=== PATIENT | female | born 2000 | race American Indian/Alaskan Native ===

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

== ENCOUNTER 2019-01-19 11:28 | Emergency (ER) | payer MEDICAID ==
[2019-01-19 11:36] VITALS: BP 145/92
[2019-01-19 12:38] LABS: Bacteria,Urine 1+ /HPF (Negative); Bilirubin,Urine NEG (Negative); Blood,Urine SM (Negative); Color,Urine Yellow (Yellow); Mucus,Urine FEW /HPF; Urobilinogen,Urine < 2.0 mg/dL (<2.0)
[2019-01-19 12:39] LABS: HCG Qualitative,Urine Negative (Negative)
--- NOTE | 2019-01-19 15:31 | Emergency Department Report ---
ED Female HPI - General Chief complaint: Urogenital-Female Stated complaint: SWOLLEN VAGINAL BURNING/ITCHING Time Seen by Provider: 01/19/19 15:07 Source: patient Mode of arrival: Ambulatory Limitations: No Limitations - History of Present Illness Initial comments: Patient is a 18-year-old [place] female who is here stating she has vaginal itching and burning with dysuria for the last 2 days. Patient also states she feels as though her vulva is swollen. She denies any vaginal discharge at this time. Patient denies abdominal pain nausea vomiting fevers or chills. - Related Data Home Medications Medication Instructions Recorded Confirmed Last Taken Citalopram Hydrobromide [celeXA] 40 mg PO QDAY 12/06/16 12/06/16 Unknown Lisinopril [Zestril TAB] 20 mg PO QDAY 12/06/16 12/06/16 12/05/16 20 mg OXcarbazepine [Trileptal] 300 mg PO QHS 12/06/16 12/06/16 Unknown hydrOXYzine HCl [Hydroxyzine HCl] 25 mg PO TID 12/06/16 12/06/16 Unknown Previous Rx's Medication Instructions Recorded Last Taken Type Nitrofurantoin Butler/M-Cryst 100 mg PO Q12HR #14 capsule 01/19/19 Unknown Rx [Macrobid CAP] Allergies Allergy/AdvReac Type Severity Reaction Status Date / Time cinnamon Allergy Itching Verified 01/19/19 11:33 iodine Allergy Rash Verified 01/19/19 11:33 morphine Allergy Rash Verified 01/19/19 11:33 sulfamethoxazole Allergy Rash Verified 01/19/19 11:33 [From Bactrim] trimethoprim [From Bactrim] Allergy Rash Verified 01/19/19 11:33 ED Review of Systems ROS: Stated complaint: SWOLLEN VAGINAL BURNING/ITCHING Other details as noted in HPI Comment: All other systems reviewed and negative ED Past Medical Hx - Past Medical History Previous Medical History?: Yes Hx Hypertension: Yes (takes meds) Hx Asthma: Yes Additional medical history: Polycystic Kidney Disesse - Surgical History Past Surgical History?: No - Social History Smoking Status: Never Smoker - Medications Home Medications: Home Medications Medication Instructions Recorded Confirmed Last Taken Type Citalopram Hydrobromide [celeXA] 40 mg PO QDAY 12/06/16 12/06/16 Unknown History Lisinopril [Zestril TAB] 20 mg PO QDAY 12/06/16 12/06/16 12/05/16 History 20 mg OXcarbazepine [Trileptal] 300 mg PO QHS 12/06/16 12/06/16 Unknown History hydrOXYzine HCl [Hydroxyzine HCl] 25 mg PO TID 12/06/16 12/06/16 Unknown History Nitrofurantoin Butler/M-Cryst 100 mg PO Q12HR #14 capsule 01/19/19 Unknown Rx [Macrobid CAP] ED Physical Exam - General Limitations: No Limitations General appearance: alert, in no apparent distress - Head Head exam: Present: atraumatic, normocephalic - Eye Eye exam: Present: normal appearance - ENT ENT exam: Present: mucous membranes moist - Neck Neck exam: Present: normal inspection - Respiratory Respiratory exam: Present: normal lung sounds bilaterally. Absent: respiratory distress, wheezes, rales, rhonchi - Cardiovascular Cardiovascular Exam: Present: regular rate, normal rhythm. Absent: systolic murmur, diastolic murmur, rubs, gallop - GI/Abdominal GI/Abdominal exam: Present: soft, normal bowel sounds. Absent: distended, tenderness, guarding, rebound - Speculum exam: Present: vaginal discharge (during the external exam a thick mucoid vaginal discharge is appreciated. There are no Bartholin's cyst or abscesses present. No open sore like lesions present.). Absent: vaginal bleeding - Extremities Exam Extremities exam: Present: normal inspection - Back Exam Back exam: Present: normal inspection - Neurological Exam Neurological exam: Present: alert, oriented X3 - Psychiatric Psychiatric exam: Present: normal affect, normal mood - Skin Skin exam: Present: warm, dry, intact, normal color. Absent: rash ED Course Vital Signs 01/19/19 11:35 Temperature 98.2 F Pulse Rate 83 Respiratory 20 Rate Blood Pressure 145/92 O2 Sat by Pulse 99 Oximetry ED Medical Decision Making - Lab Data Lab Results 01/19/19 Range/Units 12:02 Urine Color Yellow (Yellow) Urine Turbidity Cloudy (Clear) Urine pH 6.0 (5.0-7.0) Ur Specific [place] 1.011 (1.003-1.030) Urine Protein 30 mg/dl (Negative) mg/dL Urine Glucose (UA) Neg (Negative) mg/dL Urine Ketones Neg (Negative) mg/dL Urine Blood Sm (Negative) Urine Nitrite Neg (Negative) Urine Bilirubin Neg (Negative) Urine Urobilinogen < 2.0 (<2.0) mg/dL Ur Leukocyte Esterase Lg (Negative) Urine WBC (Auto) 19.0 H (0.0-6.0) /HPF Urine RBC (Auto) 6.0 (0.0-6.0) /HPF U Epithel Cells (Auto) 13.0 (0-13.0) /HPF Urine Bacteria (Auto) 1+ (Negative) /HPF Urine Mucus Few /HPF Urine HCG, Qual Negative (Negative) - Medical Decision Making Patient to be started on antibiotics for UTI however because of the copious amounts of vaginal discharge that the patient denied on the history patient will be given Rocephin azithromycin Flagyl and Diflucan. Critical care attestation.: If time is entered above; I have spent that time in minutes in the direct care of this critically ill patient, excluding procedure time. ED Disposition Clinical Impression: UTI (urinary tract infection) Qualifiers: Urinary tract infection type: acute cystitis Hematuria presence: without hematuria Qualified Code(s): N30.00 - Acute cystitis without hematuria Vaginitis Qualifiers: Chronicity: acute Qualified Code(s): N76.0 - Acute vaginitis Disposition: TO HOME OR SELFCARE Is pt being admited?: Yes Does the pt Need Aspirin: No Condition: Stable Instructions: Urinary Tract Infection in Women (ED), Vaginitis (ED) Referrals: ADRIAN MELVIN MD [Staff Physician] - 3-5 Days Time of Disposition: 15:32
[2019-01-19] MEDS ORDERED: ROCEPHIN IM ONE (15:34)
[2019-01-19] MEDS ORDERED: XYLOCAINE 1% MPF 5 mL INFILTRATI ONE (15:34)
[2019-01-19] MEDS ORDERED: ZITHROMAX PO ONE (15:34)
[2019-01-19] MEDS ORDERED: FLAGYL PO ONE (15:34)
[2019-01-19] MEDS ORDERED: DIFLUCAN PO ONE (15:34)
== END 2019-01-19 16:21 | disposition home or self-care (01) ==
LOC: ED 11:28
DX: N76.0 Acute vaginitis (principal); N39.0 Urinary tract infection, site not specified; I10 Essential (primary) hypertension; J45.909 Unspecified asthma, uncomplicated; Z79.899 Other long term (current) drug therapy; Z91.018 Allergy to other foods; Z88.6 Allergy status to analgesic agent; Z88.2 Allergy status to sulfonamides
CPT/HCPCS: 81001; 81025; 87086; 96372; 99283; J0696; 90471

== ENCOUNTER 2019-06-06 08:24 | Emergency (ER) | payer SELFPAY ==
--- NOTE | 2019-06-06 09:05 | Emergency Department Report ---
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 Patient states that she has not been when she urinates and this morning. Patient's last urinated yesterday morning she had a lot of pain and discomfort has not been able to urinate since then. Patient states that she does have the urge to urinate but only a drop or 2 comes out followed by pain. Patient also complains of slight flank pain bilaterally. She denies fevers/chills/nausea or vomiting, diarrhea or constipation. Patient is also complaining of a yellowish vaginal discharge and vaginal irritation with itching MD Complaint: vaginal discharge, dysuria -: days(s) (1) Radiation: L flank, R flank Severity: mild Severity scale (0 -10): 4 Are you Now?: No (unsure) Last Menstrual Period: 05/25/19 EDC: 02/29/20 - Related Data Home Medications Medication Instructions Recorded Confirmed Last Taken Citalopram Hydrobromide [celeXA] 40 mg PO QDAY 12/06/16 12/06/16 Unknown Lisinopril [Zestril TAB] 20 mg PO QDAY 12/06/16 12/06/16 12/05/16 20 mg OXcarbazepine [Trileptal] 300 mg PO QHS 12/06/16 12/06/16 Unknown hydrOXYzine HCl [Hydroxyzine HCl] 25 mg PO TID 12/06/16 12/06/16 Unknown Previous Rx's Medication Instructions Recorded Last Taken Type Nitrofurantoin [place]/M-Cryst 100 mg PO Q12HR #14 capsule 06/06/19 Unknown Rx [Macrobid CAP] Phenazopyridine [Pyridium] 100 mg PO TID #20 tab 06/06/19 Unknown Rx Allergies Allergy/AdvReac Type Severity Reaction Status Date / Time cinnamon Allergy Itching Verified 01/19/19 11:33 iodine Allergy Rash Verified 01/19/19 11:33 morphine Allergy Rash Verified 01/19/19 11:33 sulfamethoxazole Allergy Rash Verified 01/19/19 11:33 [From Bactrim] trimethoprim [From Bactrim] Allergy Rash Verified 01/19/19 11:33 ED Review of Systems ROS: Stated complaint: DIFFICULTY URINATING/ABD PAIN Other details as noted in HPI Comment: All other systems reviewed and negative ED Past Medical Hx - Past Medical History Previous Medical History?: Yes Hx Hypertension: Yes (takes meds) Hx Asthma: Yes Additional medical history: Polycystic Kidney Disesse - Surgical History Past Surgical History?: No - Social History Smoking Status: Never Smoker Substance Use Type: Prescribed - Medications Home Medications: Home Medications Medication Instructions Recorded Confirmed Last Taken Type Citalopram Hydrobromide [celeXA] 40 mg PO QDAY 12/06/16 12/06/16 Unknown History Lisinopril [Zestril TAB] 20 mg PO QDAY 12/06/16 12/06/16 12/05/16 History 20 mg OXcarbazepine [Trileptal] 300 mg PO QHS 12/06/16 12/06/16 Unknown History hydrOXYzine HCl [Hydroxyzine HCl] 25 mg PO TID 12/06/16 12/06/16 Unknown History Nitrofurantoin [place]/M-Cryst 100 mg PO Q12HR #14 capsule 06/06/19 Unknown Rx [Macrobid CAP] Phenazopyridine [Pyridium] 100 mg PO TID #20 tab 06/06/19 Unknown Rx ED Physical Exam - General Limitations: No Limitations General appearance: alert, in no apparent distress - Head Head exam: Present: atraumatic, normocephalic - Eye Eye exam: Present: normal appearance - ENT ENT exam: Present: mucous membranes moist - Neck Neck exam: Present: normal inspection - Respiratory Respiratory exam: Present: normal lung sounds bilaterally. Absent: respiratory distress - Cardiovascular Cardiovascular Exam: Present: regular rate, normal rhythm. Absent: systolic murmur, diastolic murmur, rubs, gallop - GI/Abdominal GI/Abdominal exam: Present: soft, normal bowel sounds - External exam: Present: normal external exam Speculum exam: Present: cervical discharge, vaginal bleeding Bi-manual exam: Present: normal bi-manual exam - Extremities Exam Extremities exam: Present: normal inspection - Back Exam Back exam: Present: normal inspection - Neurological Exam Neurological exam: Present: alert, oriented X3 - Psychiatric Psychiatric exam: Present: normal affect, normal mood - Skin Skin exam: Present: warm, dry, intact, normal color. Absent: rash ED Course Vital Signs 06/06/19 06/06/19 08:27 09:57 Temperature 97.7 F Pulse Rate 54 L Respiratory 14 12 Rate Blood Pressure 160/81 Blood Pressure 125/70 [Right] O2 Sat by Pulse 100 Oximetry ED Medical Decision Making - Lab Data Result diagrams: 06/06/19 09:04 06/06/19 09:04 Laboratory Last Values WBC 7.3 K/mm3 (4.5-11.0) 06/06/19 09:04 RBC 4.63 M/mm3 (3.65-5.03) 06/06/19 09:04 Hgb 11.6 gm/dl (10.1-14.3) 06/06/19 09:04 Hct 35.9 % (30.3-42.9) 06/06/19 09:04 MCV 77 fl (79-97) L 06/06/19 09:04 MCH 25 pg (28-32) L 06/06/19 09:04 MCHC 32 % (30-34) 06/06/19 09:04 RDW 14.0 % (13.2-15.2) 06/06/19 09:04 Plt Count 275 K/mm3 (140-440) 06/06/19 09:04 Lymph % (Auto) 26.2 % (13.4-35.0) 06/06/19 09:04 Giles % (Auto) 6.8 % (0.0-7.3) 06/06/19 09:04 Eos % (Auto) 9.7 % (0.0-4.3) H 06/06/19 09:04 Baso % (Auto) 0.6 % (0.0-1.8) 06/06/19 09:04 Lymph # 1.9 K/mm3 (1.2-5.4) 06/06/19 09:04 Giles # 0.5 K/mm3 (0.0-0.8) 06/06/19 09:04 Eos # 0.7 K/mm3 (0.0-0.4) H 06/06/19 09:04 Baso # 0.0 K/mm3 (0.0-0.1) 06/06/19 09:04 Seg Neutrophils % 56.7 % (40.0-70.0) 06/06/19 09:04 Seg Neutrophils # 4.2 K/mm3 (1.8-7.7) 06/06/19 09:04 Sodium 141 mmol/L (137-145) 06/06/19 09:04 Potassium 3.8 mmol/L (3.6-5.0) 06/06/19 09:04 Chloride 103.5 mmol/L (98-107) 06/06/19 09:04 Carbon Dioxide 26 mmol/L (22-30) 06/06/19 09:04 Anion Gap 15 mmol/L 06/06/19 09:04 BUN 8 mg/dL (7-17) 06/06/19 09:04 Creatinine 0.6 mg/dL (0.7-1.2) L 06/06/19 09:04 Estimated GFR > 60 ml/min 06/06/19 09:04 BUN/Creatinine Ratio 13 % 06/06/19 09:04 Glucose 95 mg/dL (65-100) 06/06/19 09:04 Calcium 9.0 mg/dL (8.4-10.2) 06/06/19 09:04 Total Bilirubin 0.50 mg/dL (0.1-1.2) 06/06/19 09:04 AST 16 units/L (5-40) 06/06/19 09:04 ALT 12 units/L (7-56) 06/06/19 09:04 Alkaline Phosphatase 76 units/L (35-129) 06/06/19 09:04 Total Protein 8.2 g/dL (6.3-8.2) 06/06/19 09:04 Albumin 4.4 g/dL (3.9-5) 06/06/19 09:04 Albumin/Globulin Ratio 1.2 % 06/06/19 09:04 HCG, Quant < 2 mIU/mL (0-4) 06/06/19 09:04 Urine Color Yellow (Yellow) 06/06/19 Unknown Urine Turbidity Clear (Clear) 06/06/19 Unknown Urine pH 7.0 (5.0-7.0) 06/06/19 Unknown Ur Specific [place] 1.012 (1.003-1.030) 06/06/19 Unknown Urine Protein <15 mg/dl mg/dL (Negative) 06/06/19 Unknown Urine Glucose (UA) Neg mg/dL (Negative) 06/06/19 Unknown Urine Ketones Neg mg/dL (Negative) 06/06/19 Unknown Urine Blood Neg (Negative) 06/06/19 Unknown Urine Nitrite Neg (Negative) 06/06/19 Unknown Urine Bilirubin Neg (Negative) 06/06/19 Unknown Urine Urobilinogen < 2.0 mg/dL (<2.0) 06/06/19 Unknown Ur Leukocyte Esterase Mod (Negative) 06/06/19 Unknown Urine WBC (Auto) 19.0 /HPF (0.0-6.0) H 06/06/19 Unknown Urine RBC (Auto) 4.0 /HPF (0.0-6.0) 06/06/19 Unknown U Epithel Cells (Auto) 3.0 /HPF (0-13.0) 06/06/19 Unknown Urine Bacteria (Auto) 2+ /HPF (Negative) 06/06/19 Unknown Urine Mucus Few /HPF 06/06/19 Unknown - Medical Decision Making 19-year-old female presents with a UTI. Urinalysis shows moderate bacteria. all last within normal limits. Bladder scan shows 38 ml of urine Wet prep and gonorrhea and Chlamydia cultures were drawn. Wet prep negative Scuffed with the patient that patient's cultures will not be ready resulted for another 3-4 days. Discussed the patient she may call to receive Patient received prophylaxis Rocephin for treatment and UTI treatment Labs within normal limits. Patient received a liter of fluids and Rocephin for treatment. Patient will be discharged with instructions to follow up with primary care physician. She was able to urinate prior to leaving the ER twice Critical care attestation.: If time is entered above; I have spent that time in minutes in the direct care of this critically ill patient, excluding procedure time. ED Disposition Clinical Impression: Acute cystitis, Dysuria, PKD (polycystic kidney disease) Disposition: - TO HOME OR SELFCARE Is pt being admited?: No Does the pt Need Aspirin: No Condition: Stable Instructions: Urinary Tract Infection in Women (ED), Abdominal Pain (ED) Additional Instructions: Make sure to follow up with the primary care physician as discussed. Take all your medications as you've been prescribed. If you have any worsening symptoms or develop new symptoms please return to ED immediately. Prescriptions: Nitrofurantoin Giles/M-Cryst [Macrobid CAP] 100 mg PO Q12HR #14 capsule Phenazopyridine [Pyridium] 100 mg PO TID #20 tab Referrals: PRIMARY CARE, [Primary Care Provider] - 3-5 Days [facility] [Outside] - 3-5 Days [facility] [Provider Group] - 3-5 Days Forms: Work/School Release Form(ED)
[2019-06-06 09:22] LABS: Basophils % (Auto) 0.6 % (0.0-1.8); Eosinophils # (Auto) 0.7 K/mm3 (0.0-0.4); Eosinophils % (Auto) 9.7 % (0.0-4.3); Hematocrit 35.9 % (30.3-42.9); Hemoglobin 11.6 gm/dl (10.1-14.3); Lymphocytes # (Auto) 1.9 K/mm3 (1.2-5.4); Lymphocytes % (Auto) 26.2 % (13.4-35.0); Mean Corpuscular HGB Conc 32 % (30-34); Mean Corpuscular Volume 77 fl (79-97); Monocytes # (Auto) 0.5 K/mm3 (0.0-0.8); Monocytes % (Auto) 6.8 % (0.0-7.3); Platelet Count 275 K/mm3 (140-440); Red Blood Count 4.63 M/mm3 (3.65-5.03)
[2019-06-06 09:44] LABS: Alanine Aminotransferase 12 units/L (7-56); Albumin 4.4 g/dL (3.9-5); BUN/Creatinine Ratio 13; Blood Urea Nitrogen 8 mg/dL (7-17); Hemolysis Index 2
[2019-06-06 10:06] LABS: Bacteria,Urine 2+ /HPF (Negative); Bilirubin,Urine NEG (Negative); Blood,Urine NEG (Negative); Color,Urine Yellow (Yellow); Mucus,Urine FEW /HPF; Protein,Urine <15 mg/dL mg/dL (Negative); Urobilinogen,Urine < 2.0 mg/dL (<2.0)
[2019-06-06 10:17] VITALS: BP 125/70
[2019-06-06] MEDS ORDERED: SODIUM CHLORIDE 0.9% 1000 ML 1,000 ML IV ONE (10:20)
[2019-06-06] MEDS ORDERED: cefTRIAXone/NS 1 GM/50 ML 1 GM/50 ML BAG IV ONE (10:20)
== END 2019-06-06 11:45 | disposition home or self-care (01) ==
LOC: ED 08:24
DX: N30.00 Acute cystitis without hematuria (principal); Q61.3 Polycystic kidney, unspecified; I10 Essential (primary) hypertension; J45.909 Unspecified asthma, uncomplicated; Z91.018 Allergy to other foods; Z91.041 Radiographic dye allergy status; Z88.5 Allergy status to narcotic agent; Z88.2 Allergy status to sulfonamides
CPT/HCPCS: 36415; 80053; 81001; 84702; 85025; 87086; 87210; 87591; 96365; 99283; J0696; J7030

== ENCOUNTER 2019-10-20 08:10 | Emergency (ER) | payer OTHER ==
[2019-10-20 09:53] LABS: HCG Qualitative,Urine Negative (Negative)
[2019-10-20 09:54] LABS: Bilirubin,Urine NEG (Negative); Blood,Urine LG (Negative); Color,Urine Yellow (Yellow); Mucus,Urine FEW /HPF; Urobilinogen,Urine < 2.0 mg/dL (<2.0)
[2019-10-20] MEDS ORDERED: ONDANSETRON 4 MG/2 ML INJ IV ONE (10:23)
[2019-10-20] MEDS ORDERED: KETOROLAC 30 MG/1 ML INJ IV ONE (10:23)
--- NOTE | 2019-10-20 11:10 | Emergency Department Report ---
ED Abdominal Pain HPI - General Chief Complaint: Abdominal Pain Stated Complaint: RT SIDE PAIN/ABD PAIN Time Seen by Provider: 10/20/19 09:18 Source: patient Mode of arrival: Ambulatory Limitations: No Limitations - History of Present Illness Initial Comments: Is a pleasant 19-year-old female with a history of polycystic kidney disease who presents the emergency department chief complaint of left-sided flank pain that radiates in the left lower quadrant. She reports associated nausea and vomiting with nonbloody nonbilious vomitus. She reports the pain started 3 days ago and has been progressively worsening since. She reports associated dysuria and urinary frequency. She has had similar symptoms in the past and this was due to a urinary tract infection. She denies any associated fever, chills, night sweats, headache, dizziness, blurry vision, hematemesis, melena, hematochezia, diarrhea, chest pain, shortness of breath or any other associated symptoms. She reports the pain is an 8 out of 10 described as constant dull achy pain with int ermittent sharp pain. Severity scale (0 -10): 10 - Related Data Home Medications Medication Instructions Recorded Confirmed Last Taken Citalopram Hydrobromide [celeXA] 40 mg PO QDAY 12/06/16 12/06/16 Unknown OXcarbazepine [Trileptal] 300 mg PO QHS 12/06/16 12/06/16 Unknown hydrOXYzine HCL [Hydroxyzine HCl] 25 mg PO TID 12/06/16 12/06/16 Unknown lisinopriL [Zestril TAB] 20 mg PO QDAY 12/06/16 12/06/16 12/05/16 20 mg Previous Rx's Medication Instructions Recorded Last Taken Type Nitrofurantoin [place]/M-Cryst 100 mg PO Q12HR #14 capsule 06/06/19 Unknown Rx [Macrobid CAP] Phenazopyridine [Pyridium] 100 mg PO TID #20 tab 06/06/19 Unknown Rx Ibuprofen [Motrin 800 MG tab] 800 mg PO Q8HR PRN #30 tablet 10/20/19 Unknown Rx Ondansetron [Zofran Odt] 4 mg PO Q8HR #21 tab.rapdis 10/20/19 Unknown Rx Allergies Allergy/AdvReac Type Severity Reaction Status Date / Time cinnamon Allergy Itching Verified 01/19/19 11:33 iodine Allergy Rash Verified 01/19/19 11:33 morphine Allergy Rash Verified 01/19/19 11:33 sulfamethoxazole Allergy Rash Verified 01/19/19 11:33 [From Bactrim] trimethoprim [From Bactrim] Allergy Rash Verified 01/19/19 11:33 ED Review of Systems ROS: Stated complaint: RT SIDE PAIN/ABD PAIN Other details as noted in HPI Comment: All other systems reviewed and negative Constitutional: denies: chills, fever Eyes: denies: eye pain, eye discharge, vision change ENT: denies: ear pain, throat pain Respiratory: denies: cough, shortness of breath, wheezing Cardiovascular: denies: chest pain, palpitations Endocrine: no symptoms reported Gastrointestinal: as per HPI, abdominal pain, nausea, vomiting. denies: diarrhea Genitourinary: as per HPI, dysuria, frequency. denies: urgency, discharge Musculoskeletal: as per HPI, back pain. denies: joint swelling, arthralgia Skin: denies: rash, lesions Neurological: denies: headache, weakness, paresthesias Psychiatric: denies: anxiety, depression Hematological/Lymphatic: denies: easy bleeding, easy bruising ED Past Medical Hx - Past Medical History Previous Medical History?: Yes Hx Hypertension: Yes (takes meds) Hx Asthma: Yes Additional medical history: Polycystic Kidney Disesse - Surgical History Past Surgical History?: No - Social History Smoking Status: Never Smoker Substance Use Type: None - Medications Home Medications: Home Medications Medication Instructions Recorded Confirmed Last Taken Type Citalopram Hydrobromide [celeXA] 40 mg PO QDAY 12/06/16 12/06/16 Unknown History OXcarbazepine [Trileptal] 300 mg PO QHS 12/06/16 12/06/16 Unknown History hydrOXYzine HCL [Hydroxyzine HCl] 25 mg PO TID 12/06/16 12/06/16 Unknown History lisinopriL [Zestril TAB] 20 mg PO QDAY 12/06/16 12/06/16 12/05/16 History 20 mg Nitrofurantoin [place]/M-Cryst 100 mg PO Q12HR #14 capsule 06/06/19 Unknown Rx [Macrobid CAP] Phenazopyridine [Pyridium] 100 mg PO TID #20 tab 06/06/19 Unknown Rx Ibuprofen [Motrin 800 MG tab] 800 mg PO Q8HR PRN #30 tablet 10/20/19 Unknown Rx Ondansetron [Zofran Odt] 4 mg PO Q8HR #21 tab.rapdis 10/20/19 Unknown Rx ED Physical Exam - General Limitations: No Limitations General appearance: alert, in no apparent distress - Head Head exam: Present: atraumatic, normocephalic - Eye Eye exam: Present: normal appearance, PERRL, EOMI Pupils: Present: normal accommodation - ENT ENT exam: Present: normal exam, normal orophraynx, mucous membranes moist - Neck Neck exam: Present: normal inspection, full ROM. Absent: tenderness, meningismus - Respiratory Respiratory exam: Present: normal lung sounds bilaterally. Absent: respiratory distress, wheezes, rales, rhonchi, stridor, chest wall tenderness - Cardiovascular Cardiovascular Exam: Present: regular rate, normal rhythm, normal heart sounds. Absent: systolic murmur, diastolic murmur, rubs, gallop - GI/Abdominal GI/Abdominal exam: Present: soft, tenderness (Tenderness to palpation of the left lower quadrant, no rebound or guarding, negative McBurney's point tenderness, negative Martinez sign, negative psoas sign bilaterally), normal bowel sounds. Absent: distended, guarding, rebound, rigid - Extremities Exam Extremities exam: Present: normal inspection, full ROM, normal capillary refill. Absent: tenderness - Back Exam Back exam: Present: normal inspection, full ROM. Absent: tenderness, CVA te nderness (R), CVA tenderness (L) - Neurological Exam Neurological exam: Present: alert, oriented X3, normal gait - Psychiatric Psychiatric exam: Present: normal affect, normal mood - Skin Skin exam: Present: warm, dry, intact, normal color. Absent: rash ED Course Vital Signs 10/20/19 08:16 Temperature 98.4 F Pulse Rate 88 Respiratory 18 Rate Blood Pressure 165/97 O2 Sat by Pulse 99 Oximetry ED Medical Decision Making - Lab Data Result diagrams: 10/20/19 10:45 10/20/19 11:32 Lab Results 10/20/19 10/20/19 10/20/19 Range/Units 09:42 10:45 11:32 WBC 13.1 H (4.5-11.0) K/mm3 RBC 4.71 (3.65-5.03) M/mm3 Hgb 11.5 (10.1-14.3) gm/dl Hct 35.9 (30.3-42.9) % MCV 76 L (79-97) fl MCH 25 L (28-32) pg MCHC 32 (30-34) % RDW 14.5 (13.2-15.2) % Plt Count 262 (140-440) K/mm3 Lymph % (Auto) 10.7 L (13.4-35.0) % [place] % (Auto) 5.2 (0.0-7.3) % Eos % (Auto) 0.3 (0.0-4.3) % Baso % (Auto) 0.5 (0.0-1.8) % Lymph # 1.4 (1.2-5.4) K/mm3 [place] # 0.7 (0.0-0.8) K/mm3 Eos # 0.0 (0.0-0.4) K/mm3 Baso # 0.1 (0.0-0.1) K/mm3 Seg Neutrophils % 83.3 H (40.0-70.0) % Seg Neutrophils # 10.9 H (1.8-7.7) K/mm3 Sodium 136 L (137-145) mmol/L Potassium 4.4 (3.6-5.0) mmol/L Chloride 99.9 (98-107) mmol/L Carbon Dioxide 23 (22-30) mmol/L Anion Gap 18 mmol/L BUN 7 (7-17) mg/dL Creatinine 0.5 L (0.7-1.2) mg/dL Estimated GFR > 60 ml/min BUN/Creatinine Ratio 14 % Glucose 100 (65-100) mg/dL Calcium 9.4 (8.4-10.2) mg/dL Total Bilirubin 0.50 (0.1-1.2) mg/dL AST 19 (5-40) units/L ALT 13 (7-56) units/L Alkaline Phosphatase 80 (35-129) units/L Total Protein 8.3 H (6.3-8.2) g/dL Albumin 4.5 (3.9-5) g/dL Albumin/Globulin Ratio 1.2 % Urine Color Yellow (Yellow) Urine Turbidity Slightly-cloudy (Clear) Urine pH 8.0 H (5.0-7.0) Ur Specific [place] 1.012 (1.003-1.030) Urine Protein 100 mg/dl (Negative) mg/dL Urine Glucose (UA) Neg (Negative) mg/dL Urine Ketones Neg (Negative) mg/dL Urine Blood Lg (Negative) Urine Nitrite Neg (Negative) Ur Reducing Substances Not Reportable Urine Bilirubin Neg (Negative) Urine Ictotest Not Reportable Urine Urobilinogen < 2.0 (<2.0) mg/dL Ur Leukocyte Esterase Sm (Negative) Urine WBC (Auto) 14.0 H (0.0-6.0) /HPF Urine RBC (Auto) 102.0 (0.0-6.0) /HPF U Epithel Cells (Auto) 13.0 (0-13.0) /HPF Urine Mucus Few /HPF Urine HCG, Qual Negative (Negative) - Radiology Data Radiology results: report reviewed Cat Scan Report Signed Patient: NICKI BALL MR# : [id number] : 2000 Acct:[id number] Age/Sex: 19 / F ADM Date: 10/20/19 Loc: ED Attending Dr: Ordering Physician: CUAUHTEMOC CRABTREE Date of Service: 10/20/19 Procedure(s): CT abdomen pelvis wo con Accession Number(s): [id number] cc: CUAUHTEMOC CRABTREE CT ABDOMEN AND PELVIS WITHOUT CONTRAST HISTORY: severe left flank pain, hematuria. COMPARISON: None. TECHNIQUE: CT images of the abdomen and pelvis were obtained without administration of intravenous contrast. All CT scans at this location are performed using CT dose reduction for ALARA by means of automated exposure control. FINDINGS: Lungs/bones: Lung bases are clear. There is no acute osseous abnormality or significant DJD. Abdomen/pelvis: The kidneys are both abnormal in appearance with multiple internal cysts and diffuse enlargement suggesting polycystic kidney disease. A few nonobstructive calyceal calculi are seen bilaterally, none of which exceed 4 mm in size. There is no ureteral stone disease or clear hydronephrosis. The liver, gallbladder, spleen, pancreas, adrenals, and proximal GI tract appear unremarkable. No pathologic peritoneal adenopathy. There are several shoddy retroperitoneal lymph nodes. Urinary bladder and reproductive organs appear unremarkable. There is trace slightly complex pelvic fluid which could be seen with hemorrhagic cyst rupture. No acute colonic abnormality identified. The terminal ileum and appendix appear normal. A few shoddy right lower quadrant mesenteric lymph nodes are present. IMPRESSION: 1. Findings suggestive of polycystic kidney disease with gross bilateral renal enlargement and a few nonobstructive calyceal calculi, the largest of which measures 4 mm in the mid to upper pole region on the right. 2. Trace mild the complex pelvic free fluid could be seen with recent hemorrhagic cyst rupture, although the reproductive organs appear unremarkable on this limited noncontrast exam. Signer Name: Hernando Bradley MD Signed: 10/20/2019 12:35 PM Workstation Name: [id number] - Medical Decision Making Patient's urine returned showing elevated red blood cells. With her CVA ten derness and left lower quadrant pain ordered labs and a CT. Labs returned relatively normal other than a mild leukocytosis. Kidney function liver function was unremarkable. CT scan shows polycystic kidney disease which was known to the patient with some nephrolithiasis no ureterolithiasis. There was some free fluid in the pelvis which could possibly be related to a ruptured ovarian cyst. Patient declined pelvic examination stating she was a low risk for sexual transmitted infections making PID and TOA unlikely. I have low suspicion for ovarian torsion due to the lack of sudden onset of pain or large cystic masses on ovaries. Ectopic was ruled out with a negative test. Patient will be given anti-inflammatories and antiemetics recommend follow-up with [facility] and her primary care doctor. She verbalized understanding the diagnosis, treatment plan and follow-up instructions all of her questions were answered. - Differential Diagnosis ectopic, diverticulitis, nephrolithiasis, pyelonephritis Critical care attestation.: If time is entered above; I have spent that time in minutes in the direct care of this critically ill patient, excluding procedure time. ED Disposition Clinical Impression: LLQ abdominal pain Disposition: -01 TO HOME OR SELFCARE Is pt being admited?: No Does the pt Need Aspirin: No Condition: Stable Instructions: Abdominal Pain (ED) Prescriptions: Ibuprofen [Motrin 800 MG tab] 800 mg PO Q8HR PRN #30 tablet PRN Reason: pain Ondansetron [Zofran Odt] 4 mg PO Q8HR #21 tab.rapdis Referrals: PRIMARY CARE, [Primary Care Provider] - 3-5 Days ANIA DANGELO MD [Staff Physician] - 3-5 Days Forms: Work/School Release Form(ED) Time of Disposition: 13:08
[2019-10-20 11:26] LABS: Basophils # (Auto) 0.1 K/mm3 (0.0-0.1); Basophils % (Auto) 0.5 % (0.0-1.8); Eosinophils % (Auto) 0.3 % (0.0-4.3); Hematocrit 35.9 % (30.3-42.9); Hemoglobin 11.5 gm/dl (10.1-14.3); Lymphocytes # (Auto) 1.4 K/mm3 (1.2-5.4); Lymphocytes % (Auto) 10.7 % (13.4-35.0); Mean Corpuscular HGB Conc 32 % (30-34); Mean Corpuscular Volume 76 fl (79-97); Monocytes # (Auto) 0.7 K/mm3 (0.0-0.8); Monocytes % (Auto) 5.2 % (0.0-7.3); Platelet Count 262 K/mm3 (140-440); Red Blood Count 4.71 M/mm3 (3.65-5.03); Red Cell Distribution Width 14.5 % (13.2-15.2)
[2019-10-20 12:16] LABS: Alanine Aminotransferase 13 units/L (7-56); Albumin 4.5 g/dL (3.9-5); BUN/Creatinine Ratio 14; Blood Urea Nitrogen 7 mg/dL (7-17); Calcium 9.4 mg/dL (8.4-10.2); Hemolysis Index 23
--- NOTE | 2019-10-20 12:40 | Cat Scan Report ---
CT ABDOMEN AND PELVIS WITHOUT CONTRAST HISTORY: severe left flank pain, hematuria. COMPARISON: None. TECHNIQUE: CT images of the abdomen and pelvis were obtained without administration of intravenous co ntrast. All CT scans at this location are performed using CT dose reduction for ALARA by means of au tomated exposure control. FINDINGS: Lungs/bones: Lung bases are clear. There is no acute osseous abnormality or significant DJD. Abdomen/pelvis: The kidneys are both abnormal in appearance with multiple internal cysts and diffuse enlargement suggesting polycystic kidney disease. A few nonobstructive calyceal calculi are seen antonio aterally, none of which exceed 4 mm in size. There is no ureteral stone disease or clear hydronephros is. The liver, gallbladder, spleen, pancreas, adrenals, and proximal GI tract appear unremarkable. No pat hologic peritoneal adenopathy. There are several shoddy retroperitoneal lymph nodes. Urinary bladder and reproductive organs appear unremarkable. There is trace slightly complex pelvic f luid which could be seen with hemorrhagic cyst rupture. No acute colonic abnormality identified. The terminal ileum and appendix appear normal. A few shoddy right lower quadrant mesenteric lymph nodes a re present. IMPRESSION: 1. Findings suggestive of polycystic kidney disease with gross bilateral renal enlargement and a few nonobstructive calyceal calculi, the largest of which measures 4 mm in the mid to upper pole region o n the right. 2. Trace mild the complex pelvic free fluid could be seen with recent hemorrhagic cyst rupture, altho ugh the reproductive organs appear unremarkable on this limited noncontrast exam. Signer Name: Hernando Bradley MD Signed: 10/20/2019 12:35 PM Workstation Name: [id number]
[2019-10-20 13:22] VITALS: BP 141/97
== END 2019-10-20 13:21 | disposition home or self-care (01) ==
LOC: ED 08:10
DX: R10.32 Left lower quadrant pain (principal); R11.2 Nausea with vomiting, unspecified; I10 Essential (primary) hypertension; J45.909 Unspecified asthma, uncomplicated; Z79.899 Other long term (current) drug therapy; Z88.6 Allergy status to analgesic agent; Z88.2 Allergy status to sulfonamides; Z91.041 Radiographic dye allergy status; Z91.018 Allergy to other foods
CPT/HCPCS: 36415; 74176; 80053; 81001; 81025; 85025; 87086; 96374; 96375; 99284; J1885; J2405

== ENCOUNTER 2020-09-22 10:20 | Emergency (ER) | payer SELFPAY ==
[2020-09-22] MEDS ORDERED: dexAMETHasone 20 MG/5 ML VIAL IV ONE (10:56)
[2020-09-22] MEDS ORDERED: FAMOTIDINE 20 MG/2 ML INJ IV ONE (10:56)
[2020-09-22] MEDS ORDERED: diphenhydrAMINE 50 MG/ML VIAL IV ONE (10:56)
--- NOTE | 2020-09-22 11:06 | Emergency Department Report ---
<LAURE PARKER S - Last Filed: 09/22/20 12:04> ED General Adult HPI - General Chief complaint: Skin Rash Stated complaint: SWOLLEN NECK BUMPS Time Seen by Provider: 09/22/20 10:56 - Related Data Home Medications Medication Instructions Recorded Confirmed Last Taken Citalopram Hydrobromide [celeXA] 40 mg PO QDAY 12/06/16 12/06/16 Unknown OXcarbazepine [Trileptal] 300 mg PO QHS 12/06/16 12/06/16 Unknown hydrOXYzine HCL [Hydroxyzine HCl] 25 mg PO TID 12/06/16 12/06/16 Unknown lisinopriL [Zestril TAB] 20 mg PO QDAY 12/06/16 12/06/16 12/05/16 20 mg Previous Rx's Medication Instructions Recorded Last Taken Type Nitrofurantoin [place]/M-Cryst 100 mg PO Q12HR #14 capsule 06/06/19 Unknown Rx [Macrobid CAP] Phenazopyridine [Pyridium] 100 mg PO TID #20 tab 06/06/19 Unknown Rx Ibuprofen [Motrin 800 MG tab] 800 mg PO Q8HR PRN #30 tablet 10/20/19 Unknown Rx Ondansetron [Zofran Odt] 4 mg PO Q8HR #21 tab.rapdis 10/20/19 Unknown Rx Amoxicillin/Potassium Clav 1 each PO BID 10 Days #20 tablet 09/22/20 Unknown Rx [Augmentin 875-125 Tablet] Famotidine [Pepcid] 40 mg PO QHS #10 tablet 09/22/20 Unknown Rx Prednisone [predniSONE 10 mg 10 mg PO .TAPER #1 tab.ds.pk 09/22/20 Unknown Rx (6-Day Pack, 21 Tabs)] diphenhydrAMINE [Benadryl CAP] 25 mg PO Q8HR PRN #20 capsule 09/22/20 Unknown Rx Allergies Allergy/AdvReac Type Severity Reaction Status Date / Time cinnamon Allergy Itching Verified 09/22/20 10:34 iodine Allergy Rash Verified 09/22/20 10:34 morphine Allergy Rash Verified 09/22/20 10:34 sulfamethoxazole Allergy Rash Verified 09/22/20 10:34 [From Bactrim] trimethoprim [From Bactrim] Allergy Rash Verified 09/22/20 10:34 ED Past Medical Hx - Medications Home Medications: Home Medications Medication Instructions Recorded Confirmed Last Taken Type Citalopram Hydrobromide [celeXA] 40 mg PO QDAY 12/06/16 12/06/16 Unknown History OXcarbazepine [Trileptal] 300 mg PO QHS 12/06/16 12/06/16 Unknown History hydrOXYzine HCL [Hydroxyzine HCl] 25 mg PO TID 12/06/16 12/06/16 Unknown History lisinopriL [Zestril TAB] 20 mg PO QDAY 12/06/16 12/06/16 12/05/16 History 20 mg Nitrofurantoin Christian/M-Cryst 100 mg PO Q12HR #14 capsule 06/06/19 Unknown Rx [Macrobid CAP] Phenazopyridine [Pyridium] 100 mg PO TID #20 tab 06/06/19 Unknown Rx Ibuprofen [Motrin 800 MG tab] 800 mg PO Q8HR PRN #30 tablet 10/20/19 Unknown Rx Ondansetron [Zofran Odt] 4 mg PO Q8HR #21 tab.rapdis 10/20/19 Unknown Rx Amoxicillin/Potassium Clav 1 each PO BID 10 Days #20 tablet 09/22/20 Unknown Rx [Augmentin 875-125 Tablet] Famotidine [Pepcid] 40 mg PO QHS #10 tablet 09/22/20 Unknown Rx Prednisone [predniSONE 10 mg 10 mg PO .TAPER #1 tab.ds.pk 09/22/20 Unknown Rx (6-Day Pack, 21 Tabs)] diphenhydrAMINE [Benadryl CAP] 25 mg PO Q8HR PRN #20 capsule 09/22/20 Unknown Rx ED Medical Decision Making - Medical Decision Making I saw this patient in conjunction with the Lillian POSADAS. The patient presents with a few days of right sided submandibular and neck swelling. It is mostly tender to palpation. She does not have any difficulty with swallowing or pain with swallowing. She is swollen in the submandibular area, subauricular and postauricular, and the patient also appears to have a small lymph node on the right side at the base of her neck. The posterior pharynx appears unremarkable without any tonsillar hypertrophy, erythema or exudates. There is no drooling or trismus. The patient's vital signs are reassuring including being afebrile. The patient does not appear to have any life-threatening condition that requires immediate intervention in the emergency department. However, she will be referred to otolaryngology to follow-up regarding the neck swelling. The patient understands the importance of following up with ENT. She will return to the emergency department with increased swelling, increased pain, difficulty swallowing, shortness of breath, or with any acute distress. ED Disposition Clinical Impression: Sialoadenitis Contact dermatitis Qualifiers: Contact dermatitis type: allergic Contact dermatitis trigger: unspecified trigger Qualified Code(s): L23.9 - Allergic contact dermatitis, unspecified cause Disposition: DC- TO HOME OR SELFCARE Condition: Stable Instructions: Contact Dermatitis, [id number], Salivary Gland Infection Additional Instructions: Please take medication as prescribed. Increase your water intake. Suck on sour candy or lemon lozenges. Please follow-up with the ear nose and throat doctor. It is very important that you follow-up. Return to emergency room immediately for any new or worsening symptoms as discussed. Prescriptions: Famotidine [Pepcid] 40 mg PO QHS #10 tablet Amoxicillin/Potassium Clav [Augmentin 875-125 Tablet] 1 each PO BID 10 Days #20 tablet diphenhydrAMINE [Benadryl CAP] 25 mg PO Q8HR PRN #20 capsule PRN Reason: itching Prednisone [predniSONE 10 mg (6-Day Pack, 21 Tabs)] 10 mg PO .TAPER #1 tab.ds.pk Referrals: PRIMARY CARE, [Primary Care Provider] - 2-3 Days ABDIAZIZ RAMIREZ MD [Staff Physician] - 2-3 Days ENT [facility] [Provider Group] - 2-3 Days [facility]NT [facility] [Provider Group] - 2-3 Days Print Language: MARSHALLESE <LILLIAN VARGAS - Last Filed: 09/22/20 13:10> ED General Adult HPI - General Source: patient Mode of arrival: Ambulatory Limitations: No Limitations - History of Present Illness Initial comments: Patient is a 20-year-old female presents emergency room complaints of right- sided neck pain and swelling that began 3 days ago. She states that she also broke out in a diffuse rash yesterday. She denies any sore throat, difficulty swallowing, shortness of breath, difficulty breathing, fever, cough, nausea, vomiting, diarrhea. She denies any recent antibiotics. She denies any sick contacts or recent travel. She denies any medication changes. She denies any new soaps, lotions, detergents, foods, anything new that she can think of. She has a past medical history of hypertension and CKD. She states that she has not yet taken her blood pressure medication today but took it yesterday. She has an allergy to cinnamon, iodine, morphine, Bactrim and denies being exposed to any of these things. ED Review of Systems ROS: Stated complaint: SWOLLEN NECK BUMPS Other details as noted in HPI Comment: All other systems reviewed and negative ED Past Medical Hx - Past Medical History Hx Hypertension: Yes (takes meds) Hx Psychiatric Treatment: Yes (ANXIETY) Hx Asthma: Yes Additional medical history: Polycystic Kidney Disesse - Surgical History Past Surgical History?: No - Social History Smoking Status: Never Smoker Substance Use Type: None ED Physical Exam - General Limitations: No Limitations General appearance: alert, in no apparent distress - Head Head exam: Present: atraumatic, normocephalic - Eye Eye exam: Present: normal appearance - ENT ENT exam: Present: normal orophraynx, mucous membranes moist, other (uvula is midline, no uvular edema or deviation, no trismus, no muffled voice, no tongue elevation) - Neck Neck exam: Present: other (there is a 4 cm area of edema to the right neck in the submandibular region, no increased warmth, no erythema) - Respiratory Respiratory exam: Present: normal lung sounds bilaterally. Absent: respiratory distress, wheezes, rales, rhonchi, stridor, chest wall tenderness, accessory muscle use, decreased breath sounds, prolonged expiratory - Cardiovascular Cardiovascular Exam: Present: regular rate, normal rhythm, normal heart sounds. Absent: systolic murmur, diastolic murmur, rubs, gallop - Neurological Exam Neurological exam: Present: alert, oriented X3 - Psychiatric Psychiatric exam: Present: normal affect, normal mood - Skin Skin exam: Present: warm, dry, intact ED Course Vital Signs 09/22/20 09/22/20 10:35 12:52 Temperature 98.6 F Pulse Rate 101 H 80 Respiratory 18 18 Rate Blood Pressure 197/113 Blood Pressure 141/84 [Right] O2 Sat by Pulse 100 100 Oximetry Critical care attestation.: If time is entered above; I have spent that time in minutes in the direct care of this critically ill patient, excluding procedure time. ED Disposition Is pt being admited?: No Does the pt Need Aspirin: No Time of Disposition: 13:08
[2020-09-22 12:53] VITALS: BP 141/84
== END 2020-09-22 14:40 | disposition home or self-care (01) ==
LOC: ED 10:20
DX: K11.20 Sialoadenitis, unspecified (principal); L23.9 Allergic contact dermatitis, unspecified cause; Z79.2 Long term (current) use of antibiotics; Z79.899 Other long term (current) drug therapy; Z88.6 Allergy status to analgesic agent; Z88.8 Allergy status to other drugs, medicaments and biological substances
CPT/HCPCS: 96374; 96375; 99282; J1100; J1200

== ENCOUNTER 2021-07-11 11:20 | Emergency (ER) | payer SELFPAY ==
[2021-07-11 11:34] VITALS: BP 145/86
--- NOTE | 2021-07-11 12:09 | Emergency Department Report ---
ED Female HPI - General Chief complaint: Urogenital-Female Stated complaint: VAGINAL DISCHARGE Time Seen by Provider: 07/11/21 11:44 Source: patient Mode of arrival: Ambulatory Limitations: No Limitations - History of Present Illness Initial comments: This is a pleasant 21-year-old female G1, P0 approximately 33 weeks with chief complaint of vaginal irritation and itching has been present over the past 2 days. She and her partner are here with similar symptoms. He reports he had 1 unprotected sexual encounter and since then they both have been having the symptoms. He denies any penile discharge and she denies any abnormal discharge. She reports good movement denies any loss of fluid, vaginal bleeding, abdominal pain or back pain. Denies any associated fever, chills, night sweats, to, dizziness, or vision, nausea vomiting diarrhea, chest pain or shortness of breath, weakness or any other associated symptoms. She is currently under care of maternal- medicine due to high blood pressure and polycystic kidney disease and currently takes labetalol and aspirin. MD Complaint: possible STD - Related Data Home Medications Medication Instructions Recorded Confirmed Last Taken Citalopram Hydrobromide [celeXA] 40 mg PO QDAY 12/06/16 12/06/16 Unknown OXcarbazepine [Trileptal] 300 mg PO QHS 12/06/16 12/06/16 Unknown hydrOXYzine HCL [Hydroxyzine HCl] 25 mg PO TID 12/06/16 12/06/16 Unknown lisinopriL [Zestril TAB] 20 mg PO QDAY 12/06/16 12/06/16 12/05/16 20 mg Previous Rx's Medication Instructions Recorded Last Taken Type Nitrofurantoin [place]/M-Cryst 100 mg PO Q12HR #14 capsule 06/06/19 Unknown Rx [Macrobid CAP] Phenazopyridine [Pyridium] 100 mg PO TID #20 tab 06/06/19 Unknown Rx Ibuprofen [Motrin 800 MG tab] 800 mg PO Q8HR PRN #30 tablet 10/20/19 Unknown Rx Ondansetron [Zofran Odt] 4 mg PO Q8HR #21 tab.rapdis 10/20/19 Unknown Rx Amoxicillin/Potassium Clav 1 each PO BID 10 Days #20 tablet 09/22/20 Unknown Rx [Augmentin 875-125 Tablet] Famotidine [Pepcid] 40 mg PO QHS #10 tablet 09/22/20 Unknown Rx Prednisone [predniSONE 10 mg 10 mg PO .TAPER #1 tab.ds.pk 09/22/20 Unknown Rx (6-Day Pack, 21 Tabs)] diphenhydrAMINE [Benadryl CAP] 25 mg PO Q8HR PRN #20 capsule 09/22/20 Unknown Rx Clotrimazole 1% [Lotrimin 1%] 1 applic TP BID #1 tube 07/11/21 Unknown Rx Allergies Allergy/AdvReac Type Severity Reaction Status Date / Time cinnamon Allergy Itching Verified 09/22/20 10:34 iodine Allergy Rash Verified 09/22/20 10:34 morphine Allergy Rash Verified 09/22/20 10:34 sulfamethoxazole Allergy Rash Verified 09/22/20 10:34 [From Bactrim] trimethoprim [From Bactrim] Allergy Rash Verified 09/22/20 10:34 ED Review of Systems ROS: Stated complaint: VAGINAL DISCHARGE Other details as noted in HPI Comment: All other systems reviewed and negative Constitutional: denies: chills, fever Eyes: denies: eye pain, eye discharge, vision change ENT: denies: ear pain, throat pain Respiratory: denies: cough, shortness of breath, wheezing Cardiovascular: denies: chest pain, palpitations Endocrine: no symptoms reported Gastrointestinal: denies: abdominal pain, nausea, diarrhea Genitourinary: as per HPI. denies: urgency, dysuria, discharge Musculoskeletal: denies: back pain, joint swelling, arthralgia Skin: denies: rash, lesions Neurological: denies: headache, weakness, paresthesias Psychiatric: denies: anxiety, depression Hematological/Lymphatic: denies: easy bleeding, easy bruising ED Past Medical Hx - Past Medical History Previous Medical History?: Yes Hx Hypertension: Yes (takes meds) Hx Psychiatric Treatment: Yes (ANXIETY) Hx Asthma: Yes Additional medical history: Polycystic Kidney Disesse - Social History Smoking Status: Never Smoker Substance Use Type: None - Medications Home Medications: Home Medications Medication Instructions Recorded Confirmed Last Taken Type Citalopram Hydrobromide [celeXA] 40 mg PO QDAY 12/06/16 12/06/16 Unknown History OXcarbazepine [Trileptal] 300 mg PO QHS 12/06/16 12/06/16 Unknown History hydrOXYzine HCL [Hydroxyzine HCl] 25 mg PO TID 12/06/16 12/06/16 Unknown History lisinopriL [Zestril TAB] 20 mg PO QDAY 12/06/16 12/06/16 12/05/16 History 20 mg Nitrofurantoin [place]/M-Cryst 100 mg PO Q12HR #14 capsule 06/06/19 Unknown Rx [Macrobid CAP] Phenazopyridine [Pyridium] 100 mg PO TID #20 tab 06/06/19 Unknown Rx Ibuprofen [Motrin 800 MG tab] 800 mg PO Q8HR PRN #30 tablet 10/20/19 Unknown Rx Ondansetron [Zofran Odt] 4 mg PO Q8HR #21 tab.rapdis 10/20/19 Unknown Rx Amoxicillin/Potassium Clav 1 each PO BID 10 Days #20 tablet 09/22/20 Unknown Rx [Augmentin 875-125 Tablet] Famotidine [Pepcid] 40 mg PO QHS #10 tablet 09/22/20 Unknown Rx Prednisone [predniSONE 10 mg 10 mg PO .TAPER #1 tab.ds.pk 09/22/20 Unknown Rx (6-Day Pack, 21 Tabs)] diphenhydrAMINE [Benadryl CAP] 25 mg PO Q8HR PRN #20 capsule 09/22/20 Unknown Rx Clotrimazole 1% [Lotrimin 1%] 1 applic TP BID #1 tube 07/11/21 Unknown Rx ED Physical Exam - General Limitations: No Limitations General appearance: alert, in no apparent distress - Head Head exam: Present: atraumatic, normocephalic - Eye Eye exam: Present: normal appearance, PERRL, EOMI Pupils: Present: normal accommodation - ENT ENT exam: Present: normal exam, normal orophraynx, mucous membranes moist - Neck Neck exam: Present: normal inspection, full ROM. Absent: tenderness, meningismus - Respiratory Respiratory exam: Present: normal lung sounds bilaterally. Absent: respiratory distress, wheezes, rales, rhonchi, stridor - Cardiovascular Cardiovascular Exam: Present: regular rate, normal rhythm. Absent: systolic murmur, diastolic murmur, rubs, gallop - GI/Abdominal GI/Abdominal exam: Present: soft, normal bowel sounds, other (gravid, no TTP). Absent: distended, tenderness, guarding, rebound, rigid - Extremities Exam Extremities exam: Present: normal inspection, full ROM. Absent: tenderness, pedal edema - Back Exam Back exam: Present: normal inspection, full ROM. Absent: tenderness, CVA tenderness (R), CVA tenderness (L) - Neurological Exam Neurological exam: Present: alert, oriented X3, normal gait - Psychiatric Psychiatric exam: Present: normal affect, normal mood - Skin Skin exam: Present: warm, dry, intact, normal color. Absent: rash ED Course Vital Signs 07/11/21 11:34 Temperature 97.8 F Pulse Rate 81 Respiratory 16 Rate Blood Pressure 145/86 [Right] O2 Sat by Pulse 99 Oximetry - Reevaluation(s) Reevaluation #1: 07/11/21 12:39 The heart rate was normal at 140. Checked by me via Doppler. ED Medical Decision Making - Medical Decision Making Patient well-appearing, nontoxic and in no acute distress. heart tones were normal. She had no abdominal pain, loss of fluid or back pain. Did treat her with Rocephin and azithromycin to cover for gonorrhea chlamydia due to concern. We will cover her with vaginal clotrimazole to the itching and recommended follow-up with her [employer]INE[employer] for further STD checking as needed. Recommend she return to the ER with any change or worsening symptoms. Verbalized understand the diagnosis, treatment and follow-up instructions all of her questions were answered. - Differential Diagnosis Vaginitis, cervicitis, UTI Critical care attestation.: If time is entered above; I have spent that time in minutes in the direct care of this critically ill patient, excluding procedure time. ED Disposition Clinical Impression: Vaginitis Qualifiers: Chronicity: acute Qualified Code(s): N76.0 - Acute vaginitis Disposition: HOME / SELF CARE / HOMELESS Is pt being admited?: No Condition: Stable Instructions: Vaginitis Prescriptions: Clotrimazole 1% [Lotrimin 1%] 1 applic TP BID #1 tube Referrals: PRIMARY CARE, [Primary Care Provider] - 3-5 Days Time of Disposition: 13:54
[2021-07-11] MEDS ORDERED: AZITHROMYCIN 250 MG TAB PO ONE (12:39)
[2021-07-11] MEDS ORDERED: LIDOCAINE-MPF (1%) 10 MG/1 ML VIAL 5 ML INFILTRATI ONE (12:39)
[2021-07-11 13:38] LABS: Bilirubin,Urine NEG (Negative); Blood,Urine SM (Negative); Color,Urine Yellow (Yellow); Mucus,Urine FEW /HPF; Protein,Urine <15 mg/dL mg/dL (Negative); Urobilinogen,Urine < 2.0 mg/dL (<2.0)
== END 2021-07-11 14:17 | disposition home or self-care (01) ==
LOC: ED 11:20
DX: O26.893 Other specified pregnancy related conditions, third trimester (principal); N76.0 Acute vaginitis; I10 Essential (primary) hypertension; J45.909 Unspecified asthma, uncomplicated; Z88.6 Allergy status to analgesic agent; Z91.018 Allergy to other foods; Z88.8 Allergy status to other drugs, medicaments and biological substances; Z79.899 Other long term (current) drug therapy; Z3A.33 33 weeks gestation of pregnancy
CPT/HCPCS: 81001; 96372; 99284; J0696; J3490; 99282

== ENCOUNTER 2021-11-22 16:19 | Emergency (ER) | payer BC, MEDICAID ==
[2021-11-22 17:28] LABS: HCG Qualitative,Urine Positive (Negative)
[2021-11-22 17:34] LABS: Bacteria,Urine 1+ /HPF (Negative); Bilirubin,Urine NEG (Negative); Blood,Urine NEG (Negative); Color,Urine Yellow (Yellow); Mucus,Urine FEW /HPF; Urobilinogen,Urine < 2.0 mg/dL (<2.0)
--- NOTE | 2021-11-26 13:51 | Electrocardiograph Report ---
[facility] Test Date: 2021-11-22 Test Time: 20:23:31 Pat Name: NICKI BALL Department: Room: Gender: F Industrial Automation Engineer: JUAN MANUEL : 2000 Requested By: DAWOOD ANAND Order Number: [id number] Reading MD: Berto Alston Measurements Intervals [place] Rate: 67 P: 66 MS: 154 QRS: 94 QRSD: 92 T: 68 QT: 405 QTc: 429 Interpretive Statements Sinus rhythm Rightward axis deviation Nonspecific T abnrm, anterolateral leads No previous ECG available for comparison Electronically Signed On 11-26-2021 13:51:37 EDT by Berto Alston
== END 2021-11-22 23:20 | disposition left against medical advice (07) ==
LOC: ED 16:19
DX: R10.30 Lower abdominal pain, unspecified (principal); Z53.21 Procedure and treatment not carried out due to patient leaving prior to being seen by health care provider
CPT/HCPCS: 81001; 81025; 87086; 93005